=== PATIENT | female | born 1965 | race Hispanic/Latino ===

== ENCOUNTER 2020-03-16 14:25 | Inpatient (IN) | payer SELFPAY, OTHER ==
[~2020-03-16] VITALS: Ht 152.4 cm; Wt 58.1 kg
--- OUTSIDE RECORDS SUMMARY | 2020-03-16 14:27 | XMS REPORT ---
Author Author [facility] Organization [facility] Address Unknown Phone Unavailable Care Team Providers Care Ribbon Inker Name Role Phone Unavailable Unavailable Payers Payer Name Policy Type Policy Number Effective Date Expiration D ate Problems This patient has no known problems. Allergies, Adverse Reactions, Alerts This patient has no known allergies or adverse reactions. Medications This patient has no known medications.
[2020-03-16] MEDS ORDERED: SODIUM CHLORIDE 0.9% 1000ML 1,000 ML IV SCH ×2 (14:45→17:00)
[2020-03-16] MEDS ORDERED: SODIUM CHLORIDE 0.9% 1000ML 1,000 ML ONE ×2 (15:11→17:37)
[2020-03-16] MEDS ORDERED: IOPAMIDOL 370 MG/ML 200 ML INFUS..BTL INJ ONE (15:18)
[2020-03-16] MEDS ORDERED: SODIUM CHLORIDE 0.9% 50ML 50 ML ONE (15:18)
[2020-03-16] MEDS ORDERED: BACTRIM DS TAB1 EACH PO (16:04)
--- NOTE | 2020-03-16 16:12 | Diagnostic Imaging Report ---
EXAM: CT Abdomen and Pelvis WITH intravenous contrast INDICATION: Diarrhea COMPARISON: None. TECHNIQUE: Abdomen and pelvis were scanned utilizing a multidetector helical scanner from the lung base to the pubic symphysis after administration of IV contrast. Coronal and sagittal reformations were obtained. Routine protocol was performed. Scan was performed during portal venous phase. IV CONTRAST: 100mL of Isovue 370 ORAL CONTRAST: None RADIATION DOSE: Total DLP: 615 mGy*cm Dose modulation, iterative reconstruction, and/or weight based adjustment of the mA/kV was utilized to reduce the radiation dose to as low as reasonably achievable. FINDINGS: LOWER THORAX: Normal. HEPATOBILIARY: Low-attenuation right hepatic hypodensities, likely cysts. No focal solid liver lesions and no biliary ductal dilation. Unremarkable gallbladder. SPLEEN: No splenomegaly. PANCREAS: No focal masses or ductal dilatation. ADRENALS: 4.0 cm left adrenal nodule is indeterminate by attenuation on this single phase contrast enhanced study. No right adrenal nodule. KIDNEYS/URETERS: No hydronephrosis, stones, or solid mass lesions. PELVIC ORGANS/BLADDER: Unremarkable. PERITONEUM / RETROPERITONEUM: No free air or fluid. LYMPH NODES: No lymphadenopathy. VESSELS: Unremarkable. GI TRACT: No abnormal bowel thickening. No bowel obstruction. Normal appendix. BONES AND SOFT TISSUES: No acute osseous injury. No suspicious lytic or blastic lesions. IMPRESSION: No acute findings in the abdomen or pelvis. Indeterminate 4.0 cm left adrenal nodule. Recommend further evaluation with adrenal mass protocol CT on an outpatient basis. Signed by: Clint Espinal MD on 03/16/2020 4:09 PM
[2020-03-16 18:25] VITALS: BP 132/86
[2020-03-16 19:10] VITALS: BP 132/86
[2020-03-16 19:51] LABS: HEMOGLOBIN 7.1 g/dL (12.0-16.0)
[2020-03-16 19:52] LABS: HEMATOCRIT 22.8 % (34.2-44.1)
[2020-03-16 20:00] VITALS: BP 119/68
[2020-03-16] MEDS: D5.45%NS/KCL 20MEQ 1,000 ML IV SCH (20:22)
[2020-03-16] MEDS ORDERED: SODIUM CHLORIDE 0.9% 250ML 250 ML IV ONE (20:30)
[2020-03-16 21:00] VITALS: BP 119/68
[2020-03-16] MEDS ORDERED: ACETAMINOPHEN 325 MG TAB PO PRN (22:00)
[2020-03-16] MEDS ORDERED: ONDANSETRON HCL INJ 2MG/ML 2ML 2 MG/ML VIAL IV PRN (22:00)
[2020-03-16] MEDS ORDERED: HYDROCODONE/APAP 5MG-325MG TAB PO PRN (22:00)
[2020-03-16] MEDS ORDERED: HYDRALAZINE HCL 20 MG/ML VIAL IV PRN (22:00)
--- NOTE | 2020-03-16 23:38 | History and Physical ---
CHIEF COMPLAINT: Rectal bleeding. HISTORY OF PRESENT ILLNESS: This is a 54-year-old female, who reports no past medical history, comes in to the [facility] emergency room with complaints of rectal bleeding that began early this morning. The patient reports that she woke up, went to the bathroom, noticed some significant amount of clots in the toilet, but denies any black tarry stools. Denies any epigastric abdominal pain. No history of hemorrhoids. She has never had a colonoscopy or EGD in the past. The patient seen and evaluated at bedside on the medical floor. Currently, she is doing well with no other issues at this time. The hemoglobin at the [facility] ER was 9.3, repeat hemoglobin here was 7.1. She is still having some active bleeding, in which 2 units packed RBCs has been ordered. Her vital signs were stable, when I evaluated her, systolic blood pressure 119. REVIEW OF SYSTEMS: Pertinent positives rectal bleeding. The rest of 14-point review of systems have been reviewed with the patient and are negative. ALLERGIES: NO KNOWN DRUG ALLERGIES. HOME MEDICATIONS: None. PAST MEDICAL HISTORY: Reports none. PAST SURGICAL HISTORY: Reports none. FAMILY HISTORY: None. SOCIAL HISTORY: Denies drugs, alcohol, or any smoking history. Does not work. PHYSICAL EXAMINATION: VITAL SIGNS: Temperature is 99.3, pulse 80, respiratory rate is 17, blood pressure is 119/68, and pulse ox 99% on room air. GENERAL: In acute distress. Alert and oriented x3. Cooperative on examination. HEENT: Normocephalic, atraumatic. Eyes; pupils are equal, round and reactive to light bilaterally. Extraocular movements are intact bilaterally. NECK: Supple. Good range of motion. Throat; no evidence of erythema or exudates in the posterior pharynx. Has poor dentition. PULMONARY: Clear to auscultation bilaterally. No wheezing, rales, or rhonchi. No crackles appreciated. CARDIOVASCULAR: Positive S1, S2. No murmurs, rubs, or gallops. ABDOMEN: Soft, nondistended, and nontender to palpation. Bowel sounds present MUSCULOSKELETAL: Strength is 5/5 throughout. No evidence of any muscle deficits on examination. No weakness appreciated. NEUROLOGIC: Cranial nerves II through XII grossly intact. No evidence of any neurological deficits on exam. SKIN: Intact. Warm to touch. Good cap refill. PSYCHIATRIC: Normal affect and mood. EXTREMITIES: No edema good. Range of motion throughout. LABORATORY DATA: Laboratory findings show her chemistry was reviewed from the [facility] ER was within normal limits. Urine drug screen was negative. Lactic acid normal at 0.7, hemoglobin at the [facility] ER was 9.3, now hemoglobin 7.1. DIAGNOSTIC STUDIES: CT abdomen and pelvis performed and shows no acute findings in the abdomen or pelvis. She does have a left adrenal nodule, where she will need to monitor as an outpatient. I discussed this with her to follow up as an outpatient with the PCP for further evaluation and management. IMPRESSION: Anemia secondary to rectal bleeding, unknown etiology. PLAN: At this time, the patient denies any NSAIDs or any gxwj-ngb-ddzzlpv medications. Denies any antiplatelets or any anticoagulation. Denies any history of diverticulitis or diverticulosis. At this time, type and screen and transfuse 2 units packed RBCs has been ordered. GI has been consulted. The patient will be n.p.o. after midnight for possible underlying colonoscopy. Hold all anticoagulation. Continue with IV fluids. Get a.m. labs. Await recommendations by GI for further management and care. During my evaluation, the patient was very stable. Discussed plan of care with nursing staff. MD JUSTICE Shah/DEVEN /[id number]
[2020-03-17] VITALS (8 sets, daily range): BP systolic 97–139; BP diastolic 55–78
[2020-03-17] MEDS: D5.45%NS/KCL 20MEQ 1,000 ML IV SCH ×4 (01:00→17:55)
[2020-03-17] MEDS ORDERED: DIPHENHYDRAMINE HCL INJ 50 MG/ML VIAL ONE (03:33)
[2020-03-17] MEDS ORDERED: METHYLPREDNISOLONE SOD SUCC 125 MG/2ML VIAL ONE (03:33)
[2020-03-17] MEDS ORDERED: FAMOTIDINE 20 MG/2 ML VIAL IV ONE (03:33)
[2020-03-17] MEDS ORDERED: SODIUM CHLORIDE 0.9% 1000ML 1,000 ML ONE (03:35)
[2020-03-17] MEDS ORDERED: EPINEPHRINE 0.3 MG/0.3 ML PEN.INJCTR ONE (03:40)
[2020-03-17 03:55] LABS: BASOPHILS % 0.3 % (0.0-1.0); EOSINOPHILS # (AUTO) 0.1 (0.0-0.4); EOSINOPHILS % 0.6 % (0.0-6.0); HEMATOCRIT 28.3 % (34.2-44.1); HEMOGLOBIN 9.2 g/dL (12.0-16.0); LYMPHOCYTES # (AUTO) 4.8 (1.0-3.2); LYMPHOCYTES % 47.8 % (18.0-39.1); MEAN CORPUSCULAR HGB CONC 32.5 g/dL (31-35); MEAN CORPUSCULAR VOLUME 89.3 fL (81-99); MONOCYTES # (AUTO) 0.6 (0.2-0.8); NEUTROPHILS # (AUTO) 4.5 (2.1-6.9); PLATELET COUNT 311 x10e3/uL (140-360); RED BLOOD COUNT 3.17 x10e6/uL (3.6-5.1); RED CELL DISTRIBUTION WIDTH 14.6 % (11.7-14.4)
[2020-03-17 04:23] LABS: ALANINE AMINOTRANSFERASE 11 IU/L (0-55); ALBUMIN 3.2 g/dL (3.5-5.0); ALBUMIN/GLOBULIN RATIO 1.2 (0.8-2.0); ALKALINE PHOSPHATASE 68 IU/L (40-150); ANION GAP 11.9 mmol/L (8-16); BLOOD UREA NITROGEN 7 mg/dL (7-26); BUN/CREATININE RATIO 15 (6-25); CALCIUM 8.7 mg/dL (8.4-10.2); CARBON DIOXIDE 20 mmol/L (22-29); CHLORIDE 112 mmol/L (98-107); CREATINE KINASE 37 IU/L (29-168); CREATININE, SERUM 0.48 mg/dL (0.57-1.11); EST GLOMERULAR FILTRATION RATE > 60 ML/MIN (60-); GLUCOSE 103 mg/dL (74-118); POTASSIUM 3.9 mmol/L (3.5-5.1); SODIUM 140 mmol/L (136-145)
[2020-03-17 05:34] LABS: CLARITY,URINE CLEAR (CLEAR); COLOR,URINE YELLOW (YELLOW)
[2020-03-17 05:35] LABS: BILIRUBIN,URINE SMALL (NEGATIVE); KETONES,URINE 2+ (NEGATIVE); LEUKOCYTE ESTERASE ,URINE NEGATIVE (NEGATIVE); NITRITE,URINE NEGATIVE (NEGATIVE); PROTEIN,URINE DIPSTICK NEGATIVE (NEGATIVE); URINE UROBILINOGEN 0.2 mg/dL (0.2 - 1)
[2020-03-17 06:19] LABS: BACTERIA,URINE FEW /HPF; EPITHELIAL CELLS,URINE RARE /LPF; RBC,URINE 0-5 /HPF (0-5)
[2020-03-17 12:16] LABS: HEMATOCRIT 26.4 % (34.2-44.1); HEMOGLOBIN 8.6 g/dL (12.0-16.0)
[2020-03-17 12:44] LABS: ANION GAP 14.5 mmol/L (8-16); BLOOD UREA NITROGEN 8 mg/dL (7-26); BUN/CREATININE RATIO 13 (6-25); CALCIUM 9.3 mg/dL (8.4-10.2); CARBON DIOXIDE 21 mmol/L (22-29); CHLORIDE 109 mmol/L (98-107); CREATININE, SERUM 0.62 mg/dL (0.57-1.11); EST GLOMERULAR FILTRATION RATE > 60 ML/MIN (60-); GLUCOSE 178 mg/dL (74-118); POTASSIUM 4.5 mmol/L (3.5-5.1); SODIUM 140 mmol/L (136-145)
[2020-03-17] MEDS ORDERED: CITRATE OF MAGNESIA 300ML BOTTLE PO ONE ×2 (13:15→20:00)
[2020-03-17 13:55] LABS: PARTIAL THROMBOPLASTIN TIME 27.1 seconds (23.8-35.5); PROTHROMBIN TIME 13.8 seconds (11.9-14.5)
[2020-03-17 18:37] LABS: HEMOGLOBIN 7.8 g/dL (12.0-16.0)
--- NOTE | 2020-03-17 21:12 | Progress Note ---
DATE: 03/17/2020 Medicine Progress Note SUBJECTIVE: The patient last night had a reaction to the blood transfusion given. Rapid Response was called. She was given an EpiPen, steroids, Benadryl, and Pepcid. She improved tremendously after that. No other issues when I came and evaluated the patient this morning. She was breathing well with no shortness of breath. No wheezing appreciated. She was stable. PHYSICAL EXAMINATION: VITAL SIGNS: Temperature is 98, pulse 87, respiratory rate is 18, blood pressure 137/64, pulse ox 100% on room air. GENERAL: Not in acute distress, alert and oriented x3, cooperative on examination. HEENT: Head is normocephalic and atraumatic. Eyes; pupils are equal, round and reactive to light bilaterally. Extraocular movements are intact bilaterally. Throat; no evidence of erythema or exudates in the posterior pharynx. Has poor dentition. NECK: Supple. Good range of motion. PULMONARY: Clear to auscultation bilaterally. No wheezing, rales, or rhonchi. No crackles appreciated. CARDIOVASCULAR: Positive S1 and S2. No murmurs, rubs, or gallops appreciated. ABDOMEN: Soft, nondistended, and nontender to palpation. Bowel sounds present. MUSCULOSKELETAL: Strength is 5/5 throughout. No evidence of any muscle deficits on examination. No weakness appreciated. NEUROLOGIC: Cranial nerves II through XII grossly intact. No evidence of any neurological deficits on exam. SKIN: Intact. Warm to touch. Good cap refill. PSYCHIATRIC: Normal affect and mood. EXTREMITIES: No edema good. Range of motion throughout. LABORATORY DATA: Labs show white count was 9.9, hemoglobin now is 7.8, hematocrit is 24, and platelets of 311. Chemistry; sodium 140, potassium 4.5, chloride 109, bicarb 21, anion gap of 14, BUN is 8, creatinine is 0.62, calcium is 9.3. LFTs noted. Coronavirus PCR is pending. Stool occult is pending. IMAGING STUDIES: Nothing new. This is an old imaging study. IMPRESSION: Anemia secondary to rectal bleeding, unknown etiology. PLAN: At this time, her hemoglobin did drop to 7.8. She does have frequent q.6 hours hemoglobin levels. Continue monitoring hemoglobin levels very closely. Blood transfusion p.r.n. if needed. She did have a reaction to the blood last night, but improved after given treatment with steroids, Pepcid, and EpiPen as well as Benadryl. She is scheduled for colonoscopy tomorrow. Discussed with GI doctor. Clear liquid diet. MD JUSTICE Shah/DEVEN /[id number]
[2020-03-18] VITALS (8 sets, daily range): BP systolic 93–137; BP diastolic 63–79
[2020-03-18 01:17] LABS: HEMATOCRIT 23.7 % (34.2-44.1); HEMOGLOBIN 7.7 g/dL (12.0-16.0)
[2020-03-18 05:15] LABS: BASOPHILS % 0.2 % (0.0-1.0); EOSINOPHILS # (AUTO) 0.1 (0.0-0.4); EOSINOPHILS % 0.8 % (0.0-6.0); LYMPHOCYTES # (AUTO) 3.4 (1.0-3.2); LYMPHOCYTES % 29.9 % (18.0-39.1); MEAN CORPUSCULAR HGB CONC 32.5 g/dL (31-35); MEAN CORPUSCULAR VOLUME 89.1 fL (81-99); MONOCYTES # (AUTO) 0.9 (0.2-0.8); MONOCYTES % 8.4 % (4.4-11.3); NEUTROPHILS # (AUTO) 6.8 (2.1-6.9); NEUTROPHILS % 60.2 % (38.7-80.0); PLATELET COUNT 259 x10e3/uL (140-360); RED BLOOD COUNT 2.38 x10e6/uL (3.6-5.1); RED CELL DISTRIBUTION WIDTH 15.2 % (11.7-14.4)
[2020-03-18 05:18] LABS: HEMATOCRIT 21.2 % (34.2-44.1); HEMOGLOBIN 6.9 g/dL (12.0-16.0)
[2020-03-18 05:40] LABS: ANION GAP 10.1 mmol/L (8-16); BLOOD UREA NITROGEN < 5 mg/dL (7-26); CALCIUM 8.7 mg/dL (8.4-10.2); CARBON DIOXIDE 23 mmol/L (22-29); CHLORIDE 114 mmol/L (98-107); CREATININE, SERUM 0.54 mg/dL (0.57-1.11); EST GLOMERULAR FILTRATION RATE > 60 ML/MIN (60-); GLUCOSE 116 mg/dL (74-118); POTASSIUM 4.1 mmol/L (3.5-5.1); SODIUM 143 mmol/L (136-145)
[2020-03-18 05:41] LABS: BUN/CREATININE RATIO 9 (6-25)
[2020-03-18 06:36] LABS: FERRITIN 6.42 ng/mL (4.63-204.00)
[2020-03-18] MEDS ORDERED: SODIUM CHLORIDE 0.9% 250ML 250 ML IV ONE (06:55)
[2020-03-18] MEDS ORDERED: METHYLPREDNISOLONE SOD SUCC 40 MG/ML VIAL 1ML IV PRN ×2 (07:00→11:45)
[2020-03-18] MEDS ORDERED: ACETAMINOPHEN 325 MG TAB PO PRN ×2 (07:00→11:45)
[2020-03-18] MEDS ORDERED: DIPHENHYDRAMINE HCL INJ 50 MG/ML VIAL IV PRN ×2 (07:00→11:45)
[2020-03-18] MEDS: D5.45%NS/KCL 20MEQ 1,000 ML IV SCH ×2 (08:33→17:00)
[2020-03-18 12:35] LABS: HEMATOCRIT 21.5 % (34.2-44.1)
[2020-03-18] MEDS ORDERED: FENTANYL CITRATE/PF 100MCG/2 ML INJ ONE (18:34)
[2020-03-18] MEDS ORDERED: MIDAZOLAM HCL 2 MG/2 ML VIAL ONE (18:34)
[2020-03-18] MEDS ORDERED: PROPOFOL IV EMULSION 10 MG/ML 20 ML VIAL ONE (18:36)
[2020-03-18 20:10] LABS: HEMATOCRIT 25.9 % (34.2-44.1); HEMOGLOBIN 8.6 g/dL (12.0-16.0)
[2020-03-19] VITALS (8 sets, daily range): BP systolic 104–141; BP diastolic 58–71
--- NOTE | 2020-03-19 00:16 | Operative Report ---
DATE OF PROCEDURE: 03/18/2020 SURGEON: Misael Garg MD PROCEDURE: Colonoscopy with biopsies. INDICATION FOR COLONOSCOPY: Rectal bleeding, anemia. MEDICATIONS: The patient was done under MAC, please see anesthesiologist's note. PROCEDURE IN DETAIL: With the patient in left lateral decubitus position, a flexible fiberoptic Olympus colonoscope was inserted into the rectum with ease and advanced all the way to the cecum. A large ulcerated mass was noted in the cecum. Biopsies were obtained for both permanent and frozen sections with the frozen section positive for adenocarcinoma. The scope was then withdrawn slowly and xut-zuwcrrds-we-count polyps were noted in the ascending, transverse, descending, sigmoid, and rectum, some of which is large as 3 cm in size. Multiple biopsies were obtained from different segments of the colon as well as the rectum. The scope was then retroflexed into the distal rectum and small internal hemorrhoids were noted, none of which was actively bleeding. The scope was then straightened out, it was subsequently withdrawn. The patient tolerated the procedure well. IMPRESSION: 1. Ulcerated mass, cecum, biopsies obtained for permanent section and frozen section with initial diagnosis of adenocarcinoma on the frozen section. 2. Rcz-smdpxayp-ho-count polyps up to 3 cm in size throughout the colon and rectum. Biopsies obtained. 3. Internal hemorrhoids, none actively bleeding. PLAN: Follow up histology. The patient will need total colectomy. Misael Garg MD [facility] [place]/MODL /[id number] cc: Hank May MD
[2020-03-19] MEDS: D5.45%NS/KCL 20MEQ 1,000 ML IV SCH ×3 (00:18→16:56)
--- NOTE | 2020-03-19 00:26 | Progress Note ---
DATE: 03/18/2020 Medicine Progress Note SUBJECTIVE: The patient is to undergo a colonoscopy today. She was still found to be anemic, 1 unit packed RBCs was given with premedications with steroids and Benadryl. Currently, doing well and stable. PHYSICAL EXAMINATION: VITAL SIGNS: Temperature is 97.3, pulse 74, respiratory rate is 18, blood pressure is 120/63, pulse ox 98% on room air. GENERAL: Not in acute distress. Alert and oriented x3. Cooperative on examination. HEENT: Head; normocephalic, atraumatic. Eyes; pupils are equal, round, and reactive to light bilaterally. Extraocular movements intact bilaterally. Throat; no evidence of erythema or exudates in the posterior pharynx. Has poor dentition. NECK: Supple. Good range of motion. PULMONARY: Clear to auscultation bilaterally. No wheezing, no rales, no rhonchi, no crackles appreciated. CARDIOVASCULAR: Positive S1 and S2. No murmurs, rubs, or gallops appreciated. ABDOMEN: Soft, nondistended, and nontender to palpation. Bowel sounds present. MUSCULOSKELETAL: Strength is 5/5 throughout. No evidence of any muscle deficits on examination. No weakness appreciated. NEUROLOGIC: Cranial nerve II through XII grossly intact. No evidence of any neurological deficits on exam. SKIN: Intact. Warm to touch. Good cap refill. PSYCHIATRIC: Normal affect and mood. EXTREMITIES: No edema. Good range of motion throughout. LABORATORY DATA: Labs show white count 11.2, hemoglobin was 6.9, given blood transfusion, now 8.6, hematocrit is 25.9, platelets of 259. Chemistry; sodium 143, potassium 4.1, chloride 114, bicarbonate 23, anion gap of 10, BUN is 5, creatinine is 1.54, glucose is 116, calcium is 8.7. MICROBIOLOGY: Stool cultures are pending. IMAGING STUDIES: None. IMPRESSION: 1. Anemia secondary to rectal bleeding. 2. Status post blood transfusion. PLAN: At this time, she did receive 1 unit packed RBCs with premedications prior to getting the blood transfusion with Benadryl, steroids today. Hemoglobin improved. She did undergo colonoscopy. I am still trying to see what the report shows, but according to the nursing staff, the GI doctor recommended General surgery consult due to multiple polyps. I did consult with General Surgery. Await final results from the colonoscopy. MD JUSTICE Shah/DEVEN /[id number]
[2020-03-19 06:09] LABS: HEMATOCRIT 24.1 % (34.2-44.1); HEMOGLOBIN 7.9 g/dL (12.0-16.0)
--- NOTE | 2020-03-19 07:22 | Consultation ---
DATE OF CONSULTATION: 03/19/2020 HISTORY OF PRESENT ILLNESS: The patient is a 54-year-old female, admitted to the hospital with anemia and rectal bleeding. She says she knows this on the day she was admitted, which was about 3 days ago. She has not had similar symptoms in the past. She denies abdominal pain. She had a colonoscopy done, which revealed ulcerated mass in the cecum was well as polyps throughout the colon suggestive of polyposis. She has a family history of her mother having had similar issue with colon cancer. PAST MEDICAL HISTORY: Significant for no chronic medical problems. PAST SURGICAL HISTORY: She has had previous section x2. MEDICATIONS: There were no medications. ALLERGIES: SHE HAS NO KNOWN ALLERGIES. FAMILY HISTORY: As stated above. SOCIAL HISTORY: The patient drinks about 6 beers per week. Does not smoke cigarettes. REVIEW OF SYSTEMS: As stated above. She has had no fever, no weight loss. PHYSICAL EXAMINATION: GENERAL: The patient is awake and alert, in no distress. VITAL SIGNS: Normal. HEENT: Sclerae is not icteric. NECK: Has no masses. LUNGS: Equal breath sounds are clear bilaterally. CARDIAC: Regular rate and rhythm. ABDOMEN: Soft. There is no tenderness, no mass, no organomegaly. EXTREMITIES: Have no edema. Pulses are palpable. NEUROLOGIC: Intact. IMAGING STUDIES: Colonoscopy findings were stated above with a mass in the cecum that is positive for adenocarcinoma and polyps throughout the colon. ASSESSMENT AND PLAN: A 54-year-old female with polyposis as well as carcinoma in the right colon. Options were discussed with the patient and recommend total abdominal colectomy with surveillance of the rectum in the future. The procedure was explained to the patient including risks, benefits and alternatives, she understands. She is considering the surgery. Thank you for asking me to see Ms. Alas. MD BRAYDEN Ramesh/DEVEN /[id number]
--- NOTE | 2020-03-19 15:43 | Progress Note ---
DATE: 03/19/2020 Medicine Progress Note SUBJECTIVE: The patient is currently doing well. No evidence of any rectal bleeding today when I discussed this with the nursing staff. Colonoscopy consistent with polyposis while with a cecal mass. General Surgery was consulted and they discussed with her that she does need a colectomy, but she seems to be very hesitant and not interested at this time. Despite me discussing with her this is a very important procedure based on the findings that we see. She wants to think about it. OBJECTIVE: VITAL SIGNS: Temperature is 97.5, pulse , respiratory rate is 18, blood pressure 135/63, and pulse ox 100% on room air. GENERAL: Not in acute distress. Alert and oriented x3. PULMONARY: Clear to auscultation bilaterally. No wheezing, rales, or rhonchi. No crackles appreciated. CARDIOVASCULAR: Positive S1, S2. No murmurs, rubs, or gallops appreciated. ABDOMEN: Soft. Nondistended. Nontender to palpation. Bowel sounds present. MUSCULOSKELETAL: She is ambulatory. Strength is 5/5 throughout. NEUROLOGIC: Alert, awake, and oriented x3. No evidence of neurologic deficits on exam. SKIN: Intact. Warm to touch. Good cap refill. PSYCHIATRIC: Normal affect and mood. EXTREMITIES: No edema. Good range of motion throughout. LABORATORY DATA: White count was 11.2, hemoglobin 7.9, hematocrit 24, and platelets of 259. Chemistry; sodium 143, potassium 4.1, chloride 114, bicarb 23, anion gap of 10, BUN is 5, and creatinine is . MICROBIOLOGY: None. IMAGING STUDIES: None. Colonoscopy results: Shows an ulcerated mass in the cecum. Biopsy was obtained for permanent section and frozen section with initial diagnosis of adenocarcinoma on frozen section. Fxl-weydyhwr-jy-count polyps with 3 cm in size throughout the colon and rectum. Biopsies obtained. Internal hemorrhoids, not actively bleeding. IMPRESSION: 1. Anemia, anemia secondary to colon cancer. 2. Status post colonoscopy with a cecal mass and polyposis seen. PLAN: At this time, the patient's hemoglobin is stable. Get a.m. labs. General Surgery was consulted due to the colonoscopy findings of polyposis in the cecal mass and consistent with adenocarcinoma. The patient at this time would like to wait and see how she does. I discussed with her that this is a very important procedure and likely does need a colectomy and she is hesitant at this current moment. She thinks that she will get worse. I will leave the decision making up to her in a family, but based on the recommendations by the consultants General Surgery is needed. I will go ahead and consult with Oncology as well. She is not a candidate for anticoagulation due to bleeding. MD JUSTICE Shah/MODL /[id number]
[2020-03-19 18:18] LABS: HEMATOCRIT 27.7 % (34.2-44.1); HEMOGLOBIN 8.9 g/dL (12.0-16.0)
[2020-03-20] VITALS: BP 141/71
[2020-03-20] MEDS: D5.45%NS/KCL 20MEQ 1,000 ML IV SCH ×2 (01:19→08:19)
[2020-03-20 04:00] VITALS: BP 124/62
[2020-03-20 08:24] VITALS: BP 148/69
[2020-03-20 08:42] VITALS: BP 148/69
[2020-03-20] MEDS ORDERED: SODIUM FERRIC GLUCONATE COMPLX 125 MG in SODIUM CHLORIDE 0.9% 100 ML 100 ML IV ONE (10:00)
--- NOTE | 2020-03-20 11:12 | Diagnostic Imaging Report ---
EXAMINATION: PA and lateral views of the chest. COMPARISON: None CLINICAL HISTORY: Concern for metastatic disease DISCUSSION: Lungs are well-inflated. No consolidation, suspicious nodule, or pleural effusion. Cardiomediastinal contour and pulmonary vasculature are within normal limits. No acute osseous abnormalities. IMPRESSION: No acute cardiopulmonary abnormalities. No plain radiographic findings to suggest pulmonary metastatic disease per clinical query. Signed by: Dr. Get Hines M.D. on 03/20/2020 11:09 AM
[2020-03-20 11:40] VITALS: BP 135/71
[2020-03-20 14:29] LABS: BASOPHILS % 0.4 % (0.0-1.0); EOSINOPHILS # (AUTO) 0.1 (0.0-0.4); EOSINOPHILS % 0.8 % (0.0-6.0); HEMATOCRIT 27.3 % (34.2-44.1); HEMOGLOBIN 8.9 g/dL (12.0-16.0); LYMPHOCYTES # (AUTO) 2.1 (1.0-3.2); MEAN CORPUSCULAR HEMOGLOBIN 29.5 pg (28-32); MEAN CORPUSCULAR HGB CONC 32.6 g/dL (31-35); MEAN CORPUSCULAR VOLUME 90.4 fL (81-99); MONOCYTES # (AUTO) 0.5 (0.2-0.8); MONOCYTES % 6.4 % (4.4-11.3); NEUTROPHILS # (AUTO) 4.4 (2.1-6.9); PLATELET COUNT 293 x10e3/uL (140-360); RED BLOOD COUNT 3.02 x10e6/uL (3.6-5.1); RED CELL DISTRIBUTION WIDTH 15.2 % (11.7-14.4)
[2020-03-20 14:46] LABS: ANION GAP 12.9 mmol/L (8-16); BLOOD UREA NITROGEN < 5 mg/dL (7-26); CALCIUM 9.6 mg/dL (8.4-10.2); CARBON DIOXIDE 23 mmol/L (22-29); CHLORIDE 108 mmol/L (98-107); CREATININE, SERUM 0.55 mg/dL (0.57-1.11); EST GLOMERULAR FILTRATION RATE > 60 ML/MIN (60-); GLUCOSE 130 mg/dL (74-118); POTASSIUM 3.9 mmol/L (3.5-5.1); SODIUM 140 mmol/L (136-145)
[2020-03-20 14:49] LABS: BUN/CREATININE RATIO 9 (6-25)
--- NOTE | 2020-03-20 20:53 | Discharge Summary ---
ADDENDUM: The patient was provided with all the consultants including GI, Hematology, Oncology, and General Surgery. Here, it was recommended that the patient needs a colectomy with an ostomy, but she refused to have that performed with our general surgeon. We also had the other consultants involved, Oncology and GI, but she was not interested in having anything performed at this facility and that she wants to go to [facility]. Since the patient was stable and hemoglobin was stable and there was no evidence of any rectal bleeding, the consultants cleared the patient for discharge. Phone number and address information were provided to the patient in the event she wants to follow up with our consultants. I did advise her to follow up very closely at least shortly to make sure she is doing well. I also advised her if she has any rectal bleeding to come back to the ER for further evaluation. Currently, she is asymptomatic. Vital signs are stable, has no evidence of any rectal bleeding. She has been cleared for discharge. MD JUSTICE Shah/DEVEN /[id number]
--- NOTE | 2020-03-20 22:49 | Discharge Summary ---
FINAL DISCHARGE DIAGNOSES: 1. Cecal mass with consistency of adenocarcinoma, likely colon cancer with significant polyposis with a cecal mass seen on colonoscopy. 2. Anemia, likely secondary to underlying cancer and polyposis. 3. Rectal bleeding secondary to underlying cecal mass-improved on discharge. CONSULTANTS: Hematology/Oncology, General Surgery, and GI. PHYSICAL EXAMINATION: VITAL SIGNS: Temperature is 96.8, pulse 97, respiratory rate is 19, blood pressure 135/71, pulse ox 100% on room air. LABORATORY FINDINGS: Show white count is 7, hemoglobin 8.9, hematocrit is 27.9. Her hemoglobin has been stable over the last 2 days; on 03/18, it was 8.6, 7.9, 8.9, and 8.9. Current hematocrit is 27.3 and platelets of 293. Sodium 140, potassium 3.9, chloride 108, bicarbonate 23, anion gap of 12, BUN is 5, creatinine 0.55, glucose is 130, calcium is 9.6. Iron saturation is 5%. Total bilirubin is 0.3, AST 18, ALT is 11. CK was 37. Troponins were negative. Albumin is 3.2. Vitamin B12 was 545, folic acid is 12.7. Urinalysis is negative. Coronavirus PCR was negative. IMAGING STUDIES: CT abdomen and pelvis shows no acute findings in the abdomen or pelvis. Indeterminate 4 cm left adrenal nodule. She will need to follow up as an outpatient with a log yard manager/oncologist. Chest x-ray shows no acute cardiopulmonary abnormalities. Plain radiographic findings suggest there is no plain radiographic evidence to suggest pulmonary metastatic disease or clinical queries. HOSPITAL COURSE: This is a 54-year-old female, who comes into the ED with complaints of underlying rectal bleeding, found to be anemic, needing a GI consultation. Imaging studies performed. CT abdomen and pelvis showed no acute findings except there was a left adrenal nodule, needs outpatient followup, and which I discussed this with her and she verbalized understanding. She was given blood transfusion while here in the hospital stay, developed a blood transfusion reaction prompting a rapid response needing epinephrine, steroids, Tylenol and Benadryl. The patient did well post transfusion. The patient developed a transfusion reaction toward the end of the second unit, which could be unknown etiology. That sample was sent to the lab to be further analyzed. She did receive some more blood while here in the hospital stay and her hemoglobin maintained stable at a level of an 8.9 on discharge. While here, the patient underwent colonoscopy performed by GI with impression found to show an ulcerated mass in the cecum. Biopsies were obtained, which was consistent with initial diagnosis of adenocarcinoma plus the patient had kmj-jnuwjzja-az-count polyps up to 3 cm in size throughout the whole entire colon and rectum and biopsies were taken accordingly. She did also have internal hemorrhoids with no evidence of any active bleeding. GI recommended General Surgery consultation, which I did, in which she would need a total colectomy with an ostomy, but the patient refused. I discussed this case with all the consultants; Hematology/Oncology, General Surgery, and GI and discussed overall findings and the next plan of care. The patient was very adamant that she did not want any kind of surgical intervention performed at this hospital or in this facility. Instead, the patient wants to go to [facility]. I spoke with the consultants. Since the patient is stable, her hemoglobin is stable, she is tolerating a diet well, they have cleared the patient for discharge to home. I advised the patient in the event she has any rectal bleeding, then please come to the emergency room for further evaluation and monitoring. Her hemoglobin has been stable over the last 2 days. There is no evidence of any rectal bleeding during my interview today with the patient. On the day of discharge, vital signs were stable and labs reviewed and stable. The patient is seen and evaluated and examined thoroughly on the day of discharge with no other complaints. The patient verbalized understanding and agrees to plan of care to follow up as an outpatient with PCP in 1 week and the rest of the consultants as described above in about 1 to 2 weeks' time. In the event, she does change her mind about going to [facility], phone number and address information were provided to the patient prior to being discharged to home. MEDICATIONS: See med reconciliation form. DISPOSITION: Home. CONDITION: Stable. DIET: Heart healthy. In the event of any worsening symptoms, the patient was advised to come back to the ED for further evaluation. Discharge summary took greater than 35 minutes. MD JUSTICE Shah/MODL /[id number]
== END 2020-03-20 16:38 | disposition home or self-care (01) | DRG 376 ==
LOC: FSED 14:25 → ERHOLD 16:49 → MED/SURG2 18:01 → INTOOBSV 03-18 13:16 → OBSVTOIN 03-18 13:16
PROVIDERS: ADMIT Internal Medicine; ATTEND Internal Medicine
PROC: 30233N1 Transfusion of Nonautologous Red Blood Cells into Peripheral Vein, Percutaneous Approach (ICD-10-PCS; 2020-03-16)
PROC: 0DBP8ZX Excision of Rectum, Via Natural or Artificial Opening Endoscopic, Diagnostic (ICD-10-PCS; 2020-03-18)
PROC: 0DBF8ZX Excision of Right Large Intestine, Via Natural or Artificial Opening Endoscopic, Diagnostic (ICD-10-PCS; 2020-03-18)
PROC: 30233N1 Transfusion of Nonautologous Red Blood Cells into Peripheral Vein, Percutaneous Approach (ICD-10-PCS; 2020-03-18)
PROC: 0DBH8ZX Excision of Cecum, Via Natural or Artificial Opening Endoscopic, Diagnostic (ICD-10-PCS; principal; 2020-03-18 13:00)
DX: C18.0 Malignant neoplasm of cecum (principal); R07.9 Chest pain, unspecified; K64.8 Other hemorrhoids; K63.5 Polyp of colon; D63.0 Anemia in neoplastic disease; Z80.0 Family history of malignant neoplasm of digestive organs; Z72.89 Other problems related to lifestyle; Z11.59 Encounter for screening for other viral diseases; E27.8 Other specified disorders of adrenal gland; T80.92XA Unspecified transfusion reaction, initial encounter; D50.0 Iron deficiency anemia secondary to blood loss (chronic)
CPT/HCPCS: 36415; 45378; 71046; 74177; 80048; 80053; 81001; 82550; 82553; 82607; 82728; 82746; 83540; 83605; 84466; 84484; 85014; 85018; 85025; 85045; 85610; 85730; 86078; 86850; 86900; 86920; 87045; 87635; 88305; 88331; 88342; 93005; 96361; G0378; J1200; J2250; J2916; J2920; J2930; J3010; J7030; J7050; P9016; Q9967